=== PATIENT | male | born 1990 | race Caucasian/White ===

== ENCOUNTER 2025-10-13 08:41 | Emergency (ER) | payer BC ==
[~2025-10-13] VITALS: Ht 180.3 cm; Wt 100.0 kg
[2025-10-13 08:49] VITALS: O2SAT 99
[2025-10-13 09:49] LABS: BASOPHILS % 0.2 % (0.0-2.0); EOSINOPHILS % 1.7 % (0.0-5.0); HEMATOCRIT. 41.0 % (42.0-52.0); HEMOGLOBIN. 13.7 g/dL (14.0-18.0); LYMPHOCYTES % 30.2 % (20.0-50.0); MEAN PLATELET VOLUME 7.6 fl (7.4-10.4); MONOCYTES % 6.4 % (2.0-8.0); NEUTROPHILS % 61.5 % (40.0-76.0); PLATELET 265 x1000/uL (130-400); RED BLOOD CELL COUNT 4.61 mill/uL (4.7-6.1); RED CELL DISTRIBUTION WIDTH 13.8 % (11.6-14.6)
[2025-10-13 10:00] LABS: CREATININE 0.6 mg/dL (0.6-1.3); UREA NITROGEN BLOOD 11 mg/dL (9-23)
[2025-10-13 10:02] LABS: TROPONIN I HIGH SENSITIVITY < 4 ng/L (3.0-53)
[2025-10-13] MEDS ORDERED: IBUP-1455 MT (10:07)
[2025-10-13 10:33] VITALS: BP 137/93; PULSE 80; RESP 18; TEMP 36.8; O2SAT 98
== END 2025-10-13 10:34 | disposition home or self-care (01) ==
LOC: ER 08:41
DX: R07.89 Other chest pain (principal); I10 Essential (primary) hypertension
CPT/HCPCS: 36415; 71045; 80048; 84484; 85025; 93005; 99285